=== PATIENT | female | born 1995 | race American Indian/Alaskan Native ===

== ENCOUNTER 2016-04-05 12:31 | Emergency (ER) | payer SELFPAY ==
--- NOTE | 2016-04-05 17:37 | Emergency Department Report ---
HPI - General Chief Complaint: Extremity Injury, Upper Time Seen by Provider: 04/05/16 17:37 - HPI HPI: 21-year-old female presents to ED complaining of thumb pain 1 week. Patient states about a week ago she saw a bump on the side of her thumb. Patient states little ball on the thumb came to a head injury. Patient states it is after that she got her nails done. Patient states now her whole hand is sore and tender to touch. Patient admits pain whole left hand states is throbbing in nature and very painful to touch. Patient denies any injury or fall or hit in her hand. She denies fevers/chills/nausea/vomiting/abdominal pain chest pain or any other problems. ED Past Medical Hx - Past Medical History Previous Medical History?: No - Surgical History Past Surgical History?: No - Social History Smoking Status: Current Every Day Smoker Substance Use Type: None - Medications Home Medications: Home Medications Medication Instructions Recorded Confirmed Last Taken Type Pantoprazole [Protonix] 40 mg PO BID #10 tablet 06/01/15 Unknown Rx Vit-Fe Fumar-FA [ 1 tab PO QDAY #30 tablet 06/01/15 Unknown Rx Vitamin] Promethazine [Phenergan TAB] 25 mg PO Q6HR PRN #20 tab 06/01/15 Unknown Rx Albuterol Sulfate [Ventolin HFA] 2 puff IH Q4H PRN #1 hfa.aer.ad 09/17/15 Unknown Rx Fluticasone [Flonase] 1 spray NS QDAY #1 bottle 09/17/15 Unknown Rx Penicillin Vk [Veetids TAB] 500 mg PO Q8H #30 tablet 09/17/15 Unknown Rx predniSONE [Deltasone] 50 mg PO QDAY #5 tab 09/17/15 Unknown Rx Cephalexin [Keflex] 500 mg PO BID #10 capsule 04/05/16 Unknown Rx Ibuprofen [Motrin 800 MG tab] 800 mg PO Q8HR PRN #30 tablet 04/05/16 Unknown Rx ED Review of Systems ROS: Stated complaint: LFT THUMB PAIN Other details as noted in HPI Constitutional: denies: chills, fever Eyes: denies: eye pain, eye discharge, vision change ENT: denies: ear pain, throat pain Respiratory: denies: cough, shortness of breath, wheezing Cardiovascular: denies: chest pain, palpitations Endocrine: no symptoms reported Gastrointestinal: denies: abdominal pain, nausea, diarrhea Genitourinary: denies: urgency, dysuria, discharge Musculoskeletal: denies: back pain, joint swelling, arthralgia Skin: denies: rash, lesions Neurological: denies: headache, weakness, paresthesias Psychiatric: denies: anxiety, depression Hematological/Lymphatic: denies: easy bleeding, easy bruising Physical Exam - Physical Exam Vital Signs: Vital Signs 04/05/16 14:00 Temperature 98.2 F Pulse Rate 55 L Respiratory 20 Rate Blood Pressure 132/81 O2 Sat by Pulse 100 Oximetry Physical Exam: GENERAL: Alert and oriented x3, no apparent distress, Normal Gait, atraumatic. HEAD: Head is normocephalic and a-traumatic. EYES: Extra ocular muscles are intact. Pupils are equal, round, and reactive to light and accommodation. EARS: symetrical, atraumatic, non tender, ear canal clear, gross auditory nml bilaterally. NOSE: Nose symetrical, Nontender,Nares appeared normal. MOUTH:Mouth is well hydrated and without lesions, Tongue not elevated. Mucous membranes are moist. Posterior pharynx clear, no exudate or lesions. Patent airways. NECK: Supple. Non edematous, No carotid bruits. No lymphadenopathy or thyromegaly. LUNGS: Symetrical with respiration, No wheezing, no rales or crackles, CTAB. HEART: S1, S2 present, regular rate and rhythm without murmur, no rubs, no gallops. ABDOMEN: No organomegaly was noted,Positive bowel sounds, soft, and non- distended. . Nontender to palpation on all Quadrants, NO CVA tenderness. EXTREMITIES/MUSCULOSKELETAL: No cyanosis, clubbing, rash, lesions or edema. Full ROM bilaterally. UE Pulses 2+ bilaterally. Left hand tender to touch. Patient able to extend and flex and with some difficulty. Then nonerythematous. Nonswollen. Mild raised ecchymosis on medial aspect of left thumb. NEUROLOGIC: No focal Deficit, Cranial nerves II through XII are grossly intact. No loss of sensation. PSYCHIATRIC: Mood is congruent with affect, denies suicidal or homicidal ideations. SKIN: Warm and dry, No lesions, No ulceration or induration present. ED Course Vital Signs 04/05/16 14:00 Temperature 98.2 F Pulse Rate 55 L Respiratory 20 Rate Blood Pressure 132/81 O2 Sat by Pulse 100 Oximetry ED Medical Decision Making - Medical Decision Making 21-year-old female presents with a left arm cellulitis. ED course: Discussed patient follow up with primary care physician for further workup and management. Discussed with patient that exam shows no dislocation, no fracture. Discussed patient take medication as prescribed. Discussed with patient if symptoms worsen to return to ED. Patient alert and oriented 3. Patient is in no acute or respiratory distress. Critical care attestation.: If time is entered above; I have spent that time in minutes in the direct care of this critically ill patient, excluding procedure time. ED Disposition Clinical Impression: Arthralgia of left hand, Cellulitis of thumb, left Disposition: DISCHARGED TO HOME OR SELFCARE Is pt being admited?: No Does the pt Need Aspirin: No Condition: Stable Instructions: Cellulitis (ED), Arthralgia (ED) Prescriptions: Cephalexin [Keflex] 500 mg PO BID #10 capsule Ibuprofen [Motrin 800 MG tab] 800 mg PO Q8HR PRN #30 tablet PRN Reason: Sore Throat Referrals: PRIMARY CARE, [Primary Care Provider] - 3-5 Days LUCIANA MANZANO MD [Referring] - 3-5 Days HEATHER EDWARD MD [Referring] - 3-5 Days [facility] [Outside] - 3-5 Days [facility] [Outside] - 3-5 Days [facility] [Outside] - 3-5 Days [facility] [Outside] - 3-5 Days Forms: Work/School Release Form(ED) Time of Disposition: 18:19
[2016-04-05] MEDS ORDERED: TORADOL IM ONE (18:12)
[2016-04-05 18:37] VITALS: BP 130/69
== END 2016-04-05 18:20 | disposition home or self-care (01) ==
LOC: ED 12:31
DX: L03.012 Cellulitis of left finger (principal); M79.642 Pain in left hand; F17.200 Nicotine dependence, unspecified, uncomplicated; Z79.899 Other long term (current) drug therapy; Z79.1 Long term (current) use of non-steroidal anti-inflammatories (NSAID); Z79.2 Long term (current) use of antibiotics; Z91.010 Allergy to peanuts; Z91.013 Allergy to seafood
CPT/HCPCS: 96372; 99282; J1885

== ENCOUNTER 2016-05-15 13:28 | Emergency (ER) | payer SELFPAY ==
[2016-05-15 17:58] LABS: Alanine Aminotransferase 13 units/L (7-56); Albumin/Globulin Ratio 1.2 %; Alkaline Phosphatase 93 units/L (35-129); Anion Gap 18 mmol/L; Bilirubin,Total 0.4 mg/dL (0.1-1.2); Blood Urea Nitrogen 7 mg/dL (7-17); Carbon Dioxide 21 mmol/L (22-30); Chloride 97.9 mmol/L (98-107); Glucose 78 mg/dL (65-100); Potassium 4.2 mmol/L (3.6-5.0); Sodium 133 mmol/L (137-145); Total Protein 7.4 g/dL (6.3-8.2)
[2016-05-15 18:10] LABS: Hematocrit 36.5 % (30.3-42.9); Hemoglobin 11.3 gm/dl (10.1-14.3); Mean Corpuscular HGB Conc 31 % (30-34); Mean Corpuscular Hemoglobin 22 pg (28-32); Mean Corpuscular Volume 71 fl (79-97); Platelet Count 294 K/mm3 (140-440); Red Blood Count 5.15 M/mm3 (3.65-5.03); Red Cell Distribution Width 14.3 % (13.2-15.2); White Blood Count 12.1 K/mm3 (4.5-11.0)
[2016-05-15 19:35] VITALS: BP 121/73
--- NOTE | 2016-05-15 19:54 | Ultrasound Report ---
FINAL REPORT EXAM: US OB TRANSVAGINAL HISTORY: ob complaint COMPARISONS: 06/01/2015 FINDINGS: Transvaginal grayscale and color Doppler ultrasound evaluation of the pelvis Anteverted uterus measures 7.4 x 4.4 x 6.2 cm. Homogeneous endometrium measures 10 millimeters in thickness. No visualized gestational sac or intrauterine . Right ovary measures 2.3 x 1.4 x 1.7 cm. Left ovary measures 3.5 x 1.8 x 4.7 cm. A thick walled cystic structure is present in the left ovary without significant internal or peripheral color Doppler flow demonstrated and measures 1.7 x 1.8 x 1.5 cm. IMPRESSION: No findings of intrauterine . In the setting of a positive test, differential diagnosis includes early normal versus abnormal intrauterine as well as of unknown location including ectopic . Short interval clinical and sonographic follow-up are recommended. Left ovarian 1.8 centimeter cystic structure may be a functional cyst but warrants further evaluation in the setting of a positive test and lack of intrauterine on this examination.
--- NOTE | 2016-05-15 20:13 | Ultrasound Report ---
FINAL REPORT EXAM: US OB \T\lt; = 14 WEEKS FETUS HISTORY: fall with abd injury / pain COMPARISONS: Transvaginal ultrasound of the same date FINDINGS: Transabdominal grayscale pelvic ultrasound Anteverted uterus measures 7.4 x 4.4 x 6.2 cm. Endometrium appears mildly heterogeneous and measures around 15 millimeters in thickness, better demonstrated on transvaginal ultrasound of the same date. no intrauterine identified. No significant free fluid is seen within the pelvis. The ovaries are not visualized with transabdominal technique. IMPRESSION: No intrauterine identified. Short interval clinical and sonographic follow-up is recommended in the setting of a positive test. Please see transvaginal ultrasound of the same date for full details and description.
--- NOTE | 2016-05-15 20:58 | Emergency Department Report ---
Entered by FENG MARY, acting as scribe for GLENROY DOS SANTOS PA. ED Female HPI - General Chief complaint: Extremity Injury, Lower Stated complaint: FALL/RT KNEE INJURY Time Seen by Provider: 05/15/16 17:05 Source: patient Mode of arrival: Ambulatory Limitations: No Limitations - History of Present Illness Initial comments: 21 year old female with no significant PMHx, presents to the ED c/o of right knee pain with associated lower abdominal pain secondary to falling down 2 flights of stairs 3 days ago. She states she tripped and subsequently fell down the stairs. Denies nausea, vomiting, diarrhea, fever/chills, vaginal bleeding, and vaginal discharge. LMP 03/07/2016. , patient states that she found out she was last night. She takes Zyrtec every morning. MD Complaint: other (lower abdominal pain secondary to fall down 2 flights of stairs) Onset/Timin -: days(s) Location: RLQ Radiation: non-radiating Severity: mild Quality: aching Consistency: constant Improves with: none Worsens with: none Are you Now?: Yes (patient found out she was last night. LMP ) Last Menstrual Period: 03/07/16 EDC: 12/12/16 Associated Symptoms: denies other symptoms, vaginal discharge, vaginal bleeding , nausea/vomiting, fever/chills, other (diarrhea). denies: abdominal pain - Related Data : 1 Para: 0 A: 0 Previous Rx's Medication Instructions Recorded Last Taken Type Pantoprazole [Protonix] 40 mg PO BID #10 tablet 06/01/15 Unknown Rx Vit-Fe Fumar-FA [ 1 tab PO QDAY #30 tablet 06/01/15 Unknown Rx Vitamin] Promethazine [Phenergan TAB] 25 mg PO Q6HR PRN #20 tab 06/01/15 Unknown Rx Albuterol Sulfate [Ventolin HFA] 2 puff IH Q4H PRN #1 hfa.aer.ad 09/17/15 Unknown Rx Fluticasone [Flonase] 1 spray NS QDAY #1 bottle 09/17/15 Unknown Rx Penicillin Vk [Veetids TAB] 500 mg PO Q8H #30 tablet 09/17/15 Unknown Rx predniSONE [Deltasone] 50 mg PO QDAY #5 tab 09/17/15 Unknown Rx Cephalexin [Keflex] 500 mg PO BID #10 capsule 04/05/16 Unknown Rx Ibuprofen [Motrin 800 MG tab] 800 mg PO Q8HR PRN #30 tablet 04/05/16 Unknown Rx Allergies Allergy/AdvReac Type Severity Reaction Status Date / Time peanut Allergy Itching Verified 11/18/14 10:50 shellfish derived Allergy Hives Verified 11/18/14 10:50 ED Review of Systems Comment: All other systems reviewed and negative Constitutional: denies: chills, fever Gastrointestinal: abdominal pain (lower). denies: nausea, vomiting, diarrhea Genitourinary: denies: discharge, other (vaginal bleeding) ED Past Medical Hx - Social History Smoking Status: Current Every Day Smoker Substance Use Type: None - Medications Home Medications: Home Medications Medication Instructions Recorded Confirmed Last Taken Type Pantoprazole [Protonix] 40 mg PO BID #10 tablet 06/01/15 Unknown Rx Vit-Fe Fumar-FA [ 1 tab PO QDAY #30 tablet 06/01/15 Unknown Rx Vitamin] Promethazine [Phenergan TAB] 25 mg PO Q6HR PRN #20 tab 06/01/15 Unknown Rx Albuterol Sulfate [Ventolin HFA] 2 puff IH Q4H PRN #1 hfa.aer.ad 09/17/15 Unknown Rx Fluticasone [Flonase] 1 spray NS QDAY #1 bottle 09/17/15 Unknown Rx Penicillin Vk [Veetids TAB] 500 mg PO Q8H #30 tablet 09/17/15 Unknown Rx predniSONE [Deltasone] 50 mg PO QDAY #5 tab 09/17/15 Unknown Rx Cephalexin [Keflex] 500 mg PO BID #10 capsule 04/05/16 Unknown Rx Ibuprofen [Motrin 800 MG tab] 800 mg PO Q8HR PRN #30 tablet 04/05/16 Unknown Rx ED Physical Exam - General Limitations: No Limitations General appearance: alert, in no apparent distress - Head Head exam: Present: atraumatic, normocephalic - Eye Eye exam: Present: normal appearance - ENT ENT exam: Present: mucous membranes moist - Neck Neck exam: Present: normal inspection - Respiratory Respiratory exam: Present: normal lung sounds bilaterally. Absent: respiratory distress - Cardiovascular Cardiovascular Exam: Present: regular rate - GI/Abdominal GI/Abdominal exam: Present: soft, tenderness (mild suprapubic tenderness), normal bowel sounds. Absent: distended, guarding, rebound - Rectal Rectal exam: Present: deferred - External exam: Present: other (have deferred) - Extremities Exam Extremities exam: Present: normal inspection, full ROM. Absent: joint swelling (right next) - Expanded Lower Extremity Exam Right Hip exam: Present: normal inspection, full ROM Upper Leg exam: Present: normal inspection, full ROM Knee exam: Present: normal inspection, full ROM, tenderness (anterior right knee ). Absent: swelling, pain/laxity with valgus, pain/laxity with varus Lower Leg exam: Present: normal inspection, full ROM Ankle exam: Present: normal inspection, full ROM Foot/Toe exam: Present: normal inspection, full ROM Neuro vascular tendon exam: Present: no vascular compromise (Patient is neurovascularly intact distal to the injury). Absent: pulse deficit, motor deficit, sensory deficit, tendon deficit - Back Exam Back exam: Present: normal inspection - Neurological Exam Neurological exam: Present: alert, oriented X3 - Psychiatric Psychiatric exam: Present: normal affect, normal mood - Skin Skin exam: Present: warm, dry, intact ED Course Vital Signs 05/15/16 05/15/16 16:02 19:34 Temperature 98.5 F 98.2 F Pulse Rate 80 85 Respiratory 20 14 Rate Blood Pressure 137/82 Blood Pressure 121/73 [Right] O2 Sat by Pulse 100 Oximetry - Reevaluation(s) Reevaluation #1: 05/15/16 20:42 Resting comfortably, advised patient she needs recheck in 48 hours for another one dictated hCG and repeat sonogram to rule out ectopic . ED Medical Decision Making - Lab Data Result diagrams: 05/15/16 17:23 05/15/16 17:23 - Medical Decision Making Patient sonogram shows no evidence of IUP, beta hCG 444. The patient recheck in 48 hours to rule out ectopic area advised patient return sooner for increased pain weakness, dizziness, or other concerns. ED Disposition Clinical Impression: Abdominal pain in Disposition: DISCHARGED TO HOME OR SELFCARE Is pt being admited?: No Condition: Stable Instructions: (ED) Additional Instructions: Return in 48 hours for recheck Referrals: PRIMARY CARE, [Primary Care Provider] - 3-5 Days TONYA VILLEGAS MD [Staff Physician] - 3-5 Days This documentation as recorded by the scribeUSMAN JASMINE,accurately reflects the service I personally performed and the decisions made by me,GLENROY DOS SANTOS PA.
== END 2016-05-15 21:00 | disposition home or self-care (01) ==
LOC: ED 13:28
DX: O26.891 Other specified pregnancy related conditions, first trimester (principal); R10.30 Lower abdominal pain, unspecified; M25.561 Pain in right knee; O99.331 Smoking (tobacco) complicating pregnancy, first trimester; Z91.010 Allergy to peanuts; Z91.013 Allergy to seafood
CPT/HCPCS: 36415; 76801; 76817; 80053; 84702; 85027

== ENCOUNTER 2016-06-16 12:36 | Emergency (ER) | payer SELFPAY ==
[2016-06-16 13:20] LABS: Basophils % (Auto) 0.2 % (0.0-1.8); Eosinophils % (Auto) 1.4 % (0.0-4.3); Hematocrit 35.3 % (30.3-42.9); Hemoglobin 11.1 gm/dl (10.1-14.3); Mean Corpuscular HGB Conc 31 % (30-34); Mean Corpuscular Volume 72 fl (79-97); Platelet Count 287 K/mm3 (140-440); Red Blood Count 4.89 M/mm3 (3.65-5.03); Red Cell Distribution Width 14.4 % (13.2-15.2); White Blood Count 8.9 K/mm3 (4.5-11.0)
[2016-06-16 13:29] LABS: Mean Corpuscular Hemoglobin 23 pg (28-32)
[2016-06-16 13:45] LABS: Bilirubin,Urine NEG (Negative); Blood,Urine LG (Negative); Ketones,Urine NEG (Negative); Leukocyte Esterase,Urine NEG (Negative); Nitrite,Urine NEG (Negative); Protein,Urine <15 mg/dL mg/dL (Negative); Urobilinogen,Urine < 2.0 mg/dL (<2.0); WBC,Urine < 1.0 /HPF (0.0-6.0)
[2016-06-16] MEDS ORDERED: NORCO 5/325 PO ONE (17:08)
--- NOTE | 2016-06-16 17:13 | Emergency Department Report ---
<ZACH DISLA - Last Filed: 06/16/16 17:09> ED Female HPI - General Chief complaint: Abdominal Pain Stated complaint: ABD PAIN/11 WKS PREG/VAG BLEEDING Time Seen by Provider: 06/16/16 17:04 Source: patient, RN notes reviewed Mode of arrival: Ambulatory Limitations: No Limitations - History of Present Illness Initial comments: 21-year-old female presents to the emergency department complaining of abdominal pain and vaginal bleeding. Patient states for the past 3 days she has been having sharp, intermittent left lower abdominal pain. This pain does not radiate. Patient reports initially having vaginal spotting, but this morning the bleeding became heavier. Patient describes dark blood with small clots. She reportedly is soaking one to 2 pads in a single hour. Patient states she is approximately 11 weeks , . She reports mild nausea, vomiting, and diarrhea. There are no other complaints. MD Complaint: vaginal bleeding -: Gradual, days(s) Location: LLQ Radiation: non-radiating Severity: moderate Severity scale (0 -10): 6 Quality: sharp Consistency: intermittent Improves with: none Worsens with: none Are you Now?: Yes Associated Symptoms: vaginal bleeding, abdominal pain, nausea/vomiting - Related Data : 1 Para: 0 Home Medications Medication Instructions Recorded Confirmed Last Taken Cetirizine HCl [ZyrTEC] 10 mg PO QDAY PRN 06/16/16 06/16/16 Unknown Previous Rx's Medication Instructions Recorded Last Taken Type Doxylamine/Pyridoxine HCl 1 each PO QHS PRN #30 tablet. 06/16/16 Unknown Rx [Taya Richards 10-10 mg Tablet] Vit W-Ca,Fe,FA(<1 mg) 1 each PO QDAY #30 tablet 06/16/16 Unknown Rx [ Vitamins] Allergies Allergy/AdvReac Type Severity Reaction Status Date / Time peanut Allergy Itching Verified 11/18/14 10:50 shellfish derived Allergy Hives Verified 11/18/14 10:50 ED Review of Systems ROS: Stated complaint: ABD PAIN/11 WKS PREG/VAG BLEEDING Other details as noted in HPI Comment: All other systems reviewed and negative Gastrointestinal: abdominal pain, nausea, vomiting, diarrhea Genitourinary: as per HPI (vaginal bleeding) ED Past Medical Hx - Past Medical History Previous Medical History?: No - Surgical History Past Surgical History?: No - Family History Family history: no significant - Social History Smoking Status: Never Smoker Substance Use Type: None - Medications Home Medications: Home Medications Medication Instructions Recorded Confirmed Last Taken Type Cetirizine HCl [ZyrTEC] 10 mg PO QDAY PRN 06/16/16 06/16/16 Unknown History Doxylamine/Pyridoxine HCl 1 each PO QHS PRN #30 tablet. 06/16/16 Unknown Rx [Taya Dr 10-10 mg Tablet] Vit W-Ca,Fe,FA(<1 mg) 1 each PO QDAY #30 tablet 06/16/16 Unknown Rx [ Vitamins] ED Physical Exam - General Limitations: No Limitations General appearance: alert, in no apparent distress - Head Head exam: Present: atraumatic, normocephalic - Eye Eye exam: Present: normal appearance, PERRL, EOMI - ENT ENT exam: Present: normal exam, normal orophraynx, mucous membranes moist - Neck Neck exam: Present: normal inspection, full ROM. Absent: tenderness - Respiratory Respiratory exam: Present: normal lung sounds bilaterally. Absent: respiratory distress - Cardiovascular Cardiovascular Exam: Present: regular rate, normal rhythm, normal heart sounds - GI/Abdominal GI/Abdominal exam: Present: soft, tenderness (mild left lower quadrant tenderness to palpation), guarding (voluntary), normal bowel sounds. Absent: distended, rebound - Extremities Exam Extremities exam: Present: normal inspection, full ROM. Absent: tenderness - Back Exam Back exam: Present: normal inspection, full ROM. Absent: tenderness - Neurological Exam Neurological exam: Present: alert, oriented X3. Absent: motor sensory deficit - Skin Skin exam: Present: warm, dry, intact ED Course Vital Signs 06/16/16 06/16/16 12:43 17:17 Temperature 98.6 F Pulse Rate 100 H Respiratory 16 18 Rate Blood Pressure 154/87 O2 Sat by Pulse 100 Oximetry ED Medical Decision Making - Lab Data Result diagrams: 06/16/16 12:58 - Differential Diagnosis abdominal pain in , threatened miscarriage, ectopic Critical care attestation.: If time is entered above; I have spent that time in minutes in the direct care of this critically ill patient, excluding procedure time. ED Disposition Clinical Impression: Miscarriage Disposition: DISCHARGED TO HOME OR SELFCARE Condition: Stable Instructions: Threatened Miscarriage (ED) Additional Instructions: Take the vitamins as directed. Take nausea medication as needed/ directed. Follow up with any of the listed [facility] groups as soon as possible. Rest and avoid heavy lifting. Do not engage in sexual activity until cleared by an [facility] doctor. Possibilities include early , early possible miscarriage, or demise. Return to the ER right away with new pain, worsened pain, migration of pain, fevers or chills, nausea or vomiting, inability to tolerate liquid feeds. Referrals: PRIMARY CARE, [Primary Care Provider] - 3-5 Days [facility] [Provider Group] - 3-5 Days [facility] [Provider [facility]] - 3-5 Days [facility] [Provider Group] - 3-5 Days <MATHEW JACOBS - Last Filed: 06/16/16 20:13> ED Course - Reevaluation(s) Reevaluation #1: 06/16/16 20:10 The patient is signed out to me from Dr. Disla. Ultrasound demonstrates intrauterine with estimated gestational age 5 weeks and 6 days. No heart tones are noted. Patient is Rh+. Differential diagnosis includes early gestational age versus possibility of demise. The abdomen is soft on repeat examination. The patient is tolerating liquid feeds. The patient will be started on vitamins, nausea medication, instructed to follow up with local outpatient [facility]. Return precautions are reviewed. ED Medical Decision Making - Lab Data Result diagrams: 06/16/16 12:58 Vital Signs 06/16/16 06/16/16 12:43 17:17 Temperature 98.6 F Pulse Rate 100 H Respiratory 16 18 Rate Blood Pressure 154/87 O2 Sat by Pulse 100 Oximetry Lab Results 06/16/16 06/16/16 06/16/16 Range/Units 12:58 12:58 12:58 WBC 8.9 (4.5-11.0) K/mm3 RBC 4.89 (3.65-5.03) M/mm3 Hgb 11.1 (10.1-14.3) gm/dl Hct 35.3 (30.3-42.9) % MCV 72 L (79-97) fl MCH 23 L (28-32) pg MCHC 31 (30-34) % RDW 14.4 (13.2-15.2) % Plt Count 287 (140-440) K/mm3 Lymph % (Auto) 15.8 (13.4-35.0) % [place] % (Auto) 5.5 (0.0-7.3) % Eos % (Auto) 1.4 (0.0-4.3) % Baso % (Auto) 0.2 (0.0-1.8) % Lymph # 1.4 (1.2-5.4) K/mm3 [place] # 0.5 (0.0-0.8) K/mm3 Eos # 0.1 (0.0-0.4) K/mm3 Baso # 0.0 (0.0-0.1) K/mm3 Seg Neutrophils % 77.1 H (40.0-70.0) % Seg Neutrophils # 6.9 (1.8-7.7) K/mm3 HCG, Quant 08622 H (0-4) mIU/mL Urine Color (Yellow) Urine Turbidity (Clear) Urine pH (5.0-7.0) Ur Specific [place] (1.003-1.030) Urine Protein (Negative) mg/dL Urine Glucose (UA) (Negative) mg/dL Urine Ketones (Negative) mg/dL Urine Blood (Negative) Urine Nitrite (Negative) Urine Bilirubin (Negative) Urine Urobilinogen (<2.0) mg/dL Ur Leukocyte Esterase (Negative) Urine WBC (Auto) (0.0-6.0) /HPF Urine RBC (Auto) (0.0-6.0) /HPF U Epithel Cells (Auto) (0-13.0) /HPF Blood Type O POSITIVE Antibody Screen TNR REGGIE Antibody Screen Negative 06/16/16 Range/Units 12:59 WBC (4.5-11.0) K/mm3 RBC (3.65-5.03) M/mm3 Hgb (10.1-14.3) gm/dl Hct (30.3-42.9) % MCV (79-97) fl MCH (28-32) pg MCHC (30-34) % RDW (13.2-15.2) % Plt Count (140-440) K/mm3 Lymph % (Auto) (13.4-35.0) % [place] % (Auto) (0.0-7.3) % Eos % (Auto) (0.0-4.3) % Baso % (Auto) (0.0-1.8) % Lymph # (1.2-5.4) K/mm3 [place] # (0.0-0.8) K/mm3 Eos # (0.0-0.4) K/mm3 Baso # (0.0-0.1) K/mm3 Seg Neutrophils % (40.0-70.0) % Seg Neutrophils # (1.8-7.7) K/mm3 HCG, Quant (0-4) mIU/mL Urine Color Straw (Yellow) Urine Turbidity Clear (Clear) Urine pH 7.0 (5.0-7.0) Ur Specific [place] 1.004 (1.003-1.030) Urine Protein <15 mg/dl (Negative) mg/dL Urine Glucose (UA) Neg (Negative) mg/dL Urine Ketones Neg (Negative) mg/dL Urine Blood Lg (Negative) Urine Nitrite Neg (Negative) Urine Bilirubin Neg (Negative) Urine Urobilinogen < 2.0 (<2.0) mg/dL Ur Leukocyte Esterase Neg (Negative) Urine WBC (Auto) < 1.0 (0.0-6.0) /HPF Urine RBC (Auto) 2.0 (0.0-6.0) /HPF U Epithel Cells (Auto) < 1.0 (0-13.0) /HPF Blood Type Antibody Screen REGGIE Antibody Screen ED Disposition Is pt being admited?: No Does the pt Need Aspirin: No
--- NOTE | 2016-06-16 20:02 | Ultrasound Report ---
FINAL REPORT EXAM: US OB TRANSVAGINAL HISTORY: , vag bleed TECHNIQUE: Endovaginal ultrasound was performed in multiple grayscale sonographic images were obtained of the uterus and adnexa. PRIORS: Transabdominal ultrasound from 06/16/2016 FINDINGS: Gestational sac is identified in the uterus. There is a pole that measures approximately 2.9 millimeters in length. Yolk sac is identified. No heart tones were detected during the exam. Right ovary measures approximately 3.2 x 1.7 x 3.2 centimeters. There is an 11 millimeter cyst in the right ovary. Left ovary measures approximately 2.1 x 1.4 x 1.1 centimeter. Small amount of fluid is seen posterior to the uterus. IMPRESSION: 1. Single intrauterine is identified with estimated gestational age 5 weeks 6 days. No heart tones were detected during the exam. This may be secondary to early gestational age. Possibility of demise is not excluded. Short-term interval follow-up exam is recommended to assure viability. 2. 11 millimeter right ovarian cyst. 3. Small amount of fluid is noted posterior to the uterus. This is a nonspecific finding. It may be physiologic. 4. Please refer to report from transabdominal pelvic ultrasound from 06/16/2016 for additional information.
--- NOTE | 2016-06-16 20:02 | Ultrasound Report ---
FINAL REPORT EXAM: US OB \T\lt; = 14 WEEKS FETUS HISTORY: , vag bleed TECHNIQUE: Transabdominal pelvic ultrasound was performed. Multiple grayscale sonographic images were obtained of the uterus and adnexa. PRIORS: Endovaginal ultrasound from 06/16/2016 FINDINGS: Uterus measures approximately 7.5 x 5.1 x 6.2 centimeters. There is a hypoechoic structure in the uterus that measures approximately 2 centimeters in diameter. Ovaries are not identified with certainty. IMPRESSION: 1. Hypoechoic structure is seen in the uterus. This is consistent with gestational sac. Please refer to report from endovaginal ultrasound from 06/16/2016 for additional information. 2. Nonvisualization of the ovaries.
[2016-06-16 20:23] VITALS: BP 133/68
== END 2016-06-16 20:45 | disposition home or self-care (01) ==
LOC: ED 12:36
DX: O03.9 Complete or unspecified spontaneous abortion without complication (principal); Z3A.00 Weeks of gestation of pregnancy not specified
CPT/HCPCS: 36415; 76801; 76817; 81001; 84702; 85025; 86850; 86900; 86901; 99284

== ENCOUNTER 2017-08-21 19:16 | Emergency (ER) | payer SELFPAY ==
[2017-08-21 19:50] LABS: Hematocrit 35.5 % (30.3-42.9); Hemoglobin 11.4 gm/dl (10.1-14.3); Mean Corpuscular HGB Conc 32 % (30-34); Mean Corpuscular Volume 74 fl (79-97); Red Blood Count 4.82 M/mm3 (3.65-5.03); Red Cell Distribution Width 14.4 % (13.2-15.2)
[2017-08-21 19:56] LABS: Mean Corpuscular Hemoglobin 24 pg (28-32); Platelet Count 223 K/mm3 (140-440)
[2017-08-21 20:03] LABS: Alanine Aminotransferase 11 units/L (7-56); Albumin 3.7 g/dL (3.9-5); BUN/Creatinine Ratio 10; Blood Urea Nitrogen 6 mg/dL (7-17); Calcium 9.2 mg/dL (8.4-10.2); Hemolysis Index 88
[2017-08-21] MEDS ORDERED: MORPHINE IV ONE (20:28)
[2017-08-21] MEDS ORDERED: ZOFRAN IV ONE (20:28)
[2017-08-21] MEDS ORDERED: NACL 0.9% 1000 ML 1,000 ML IV ONE (20:28)
--- NOTE | 2017-08-21 20:34 | Emergency Department Report ---
ED Abdominal Pain HPI - General Chief Complaint: Abdominal Pain Stated Complaint: ASTHMA Time Seen by Provider: 08/21/17 20:21 Source: patient Mode of arrival: Ambulatory Limitations: No Limitations - History of Present Illness Initial Comments: Ms. Mederos is who is currently 8 weeks 3 days by LMP 06/24/2017. She presents with severe abdominal pain diffuse for 3 days. Bilateral generalized pain. Sharp pain. Tender to touch. +constipation +vomiting. Gradual onset. MD Complaint: abdominal pain -: Gradual, days(s) (3) Location: diffuse Radiation: none Migration to: no migration Severity: severe Quality: sharp Consistency: constant Improves With: nothing, bowel movement Worsens With: movement Context: other (new ) Associated Symptoms: nausea, vomiting, constipation - Related Data Home Medications Medication Instructions Recorded Confirmed Last Taken Cetirizine HCl [ZyrTEC] 10 mg PO QDAY PRN 06/16/16 06/16/16 Unknown Previous Rx's Medication Instructions Recorded Last Taken Type Doxylamine Succinate/Vit B6 1 each PO QHS PRN #30 tablet. 06/16/16 Unknown Rx [Taya Richards 10-10 mg Tablet] Vit Calc,Iron,Folic 1 each PO QDAY #30 tablet 06/16/16 Unknown Rx [ Vitamins] Promethazine [Phenergan TAB] 25 mg PO Q6HR PRN #30 tab 08/21/17 Unknown Rx Allergies Allergy/AdvReac Type Severity Reaction Status Date / Time peanut Allergy Itching Verified 11/18/14 10:50 shellfish derived Allergy Hives Verified 11/18/14 10:50 ED Review of Systems ROS: Stated complaint: ASTHMA Other details as noted in HPI Comment: All other systems reviewed and negative Constitutional: denies: fever, malaise Respiratory: denies: cough Cardiovascular: denies: chest pain ED Past Medical Hx - Past Medical History Previous Medical History?: No Additional medical history: no hx of STD - Surgical History Past Surgical History?: No - Social History Smoking Status: Never Smoker Substance Use Type: None - Medications Home Medications: Home Medications Medication Instructions Recorded Confirmed Last Taken Type Cetirizine HCl [ZyrTEC] 10 mg PO QDAY PRN 06/16/16 06/16/16 Unknown History Doxylamine Succinate/Vit B6 1 each PO QHS PRN #30 tablet. 06/16/16 Unknown Rx [Taya Richards 10-10 mg Tablet] Vit Calc,Iron,Folic 1 each PO QDAY #30 tablet 06/16/16 Unknown Rx [ Vitamins] Promethazine [Phenergan TAB] 25 mg PO Q6HR PRN #30 tab 08/21/17 Unknown Rx ED Physical Exam - General Limitations: No Limitations General appearance: alert, other (pacing room, rubbing abdomen, appears in pain) - Head Head exam: Present: atraumatic, normocephalic - Eye Eye exam: Present: normal appearance - ENT ENT exam: Present: mucous membranes moist - Neck Neck exam: Present: normal inspection. Absent: tenderness, meningismus - Respiratory Respiratory exam: Present: normal lung sounds bilaterally. Absent: respiratory distress, wheezes, rales, rhonchi - Cardiovascular Cardiovascular Exam: Present: regular rate, normal rhythm, normal heart sounds. Absent: systolic murmur, diastolic murmur, rubs, gallop - GI/Abdominal GI/Abdominal exam: Present: soft, guarding, normal bowel sounds. Absent: distended, tenderness, rebound - Extremities Exam Extremities exam: Present: normal inspection - Back Exam Back exam: Present: normal inspection - Neurological Exam Neurological exam: Present: alert, oriented X3, normal gait - Psychiatric Psychiatric exam: Present: normal affect, normal mood - Skin Skin exam: Present: warm, dry, intact, normal color. Absent: rash ED Course Vital Signs 08/21/17 08/21/17 08/21/17 19:23 20:30 20:46 Temperature 98.2 F Pulse Rate 86 Respiratory 22 Rate Blood Pressure 118/85 121/63 O2 Sat by Pulse 99 99 98 Oximetry 08/21/17 08/21/17 08/21/17 21:00 22:11 22:19 Temperature Pulse Rate Respiratory 18 Rate Blood Pressure 121/63 112/53 O2 Sat by Pulse 100 100 99 Oximetry ED Medical Decision Making - Lab Data Result diagrams: 08/21/17 19:38 08/21/17 19:38 Laboratory Results - last 24 hr 08/21/17 08/21/17 08/21/17 19:38 19:38 19:38 WBC 11.0 RBC 4.82 Hgb 11.4 Hct 35.5 MCV 74 L MCH 24 L MCHC 32 RDW 14.4 Plt Count 223 Add Manual Diff Complete Total Counted 100 Seg Neuts % (Manual) 64.0 Band Neutrophils % 0 Lymphocytes % (Manual) 30.0 Reactive Lymphs % (Man) 0 Monocytes % (Manual) 6.0 Eosinophils % (Manual) 0 Basophils % (Manual) 0 Metamyelocytes % 0 Myelocytes % 0 Promyelocytes % 0 Blast Cells % 0 Nucleated RBC % Not Reportable Seg Neutrophils # Man 7.0 Band Neutrophils # 0.0 Lymphocytes # (Manual) 3.3 Abs React Lymphs (Man) 0.0 Monocytes # (Manual) 0.7 Eosinophils # (Manual) 0.0 Basophils # (Manual) 0.0 Metamyelocytes # 0.0 Myelocytes # 0.0 Promyelocytes # 0.0 Blast Cells # 0.0 WBC Morphology Not Reportable Hypersegmented Neuts Not Reportable Hyposegmented Neuts Not Reportable Hypogranular Neuts Not Reportable Smudge Cells Not Reportable Toxic Granulation Not Reportable Toxic Vacuolation Not Reportable Dohle Bodies Not Reportable Pelger-Huet Anomaly Not Reportable Justyn Rods Not Reportable Platelet Estimate Consistent w auto Clumped Platelets Not Reportable Plt Clumps, EDTA Not Reportable Large Platelets Not Reportable Giant Platelets Not Reportable Platelet Satelliting Not Reportable Plt Morphology Comment Not Reportable RBC Morphology Not Reportable Dimorphic RBCs Not Reportable Polychromasia Not Reportable Hypochromasia Not Reportable Poikilocytosis Not Reportable Anisocytosis Not Reportable Microcytosis Not Reportable Macrocytosis Not Reportable Spherocytes Not Reportable Pappenheimer Bodies Not Reportable Sickle Cells Not Reportable Target Cells Rare Tear Drop Cells Not Reportable Ovalocytes Not Reportable Helmet Cells Not Reportable [place]úñ[place] Bodies Not Reportable [place] Rings Not Reportable [place] Cells Not Reportable Bite Cells Not Reportable Crenated Cell Not Reportable Elliptocytes Rare Acanthocytes (Spur) Not Reportable Rouleaux Not Reportable Hemoglobin C Crystals Not Reportable Schistocytes Not Reportable Malaria parasites Not Reportable Diaz Bodies Not Reportable Hem Pathologist Commnt No Sodium 134 L Potassium 3.7 Chloride 100.5 Carbon Dioxide 15 L Anion Gap 22 BUN 6 L Creatinine 0.6 L Estimated GFR > 60 BUN/Creatinine Ratio 10 Glucose 102 H Calcium 9.2 Total Bilirubin 0.50 AST 24 ALT 11 Alkaline Phosphatase 80 Total Protein 7.1 Albumin 3.7 L Albumin/Globulin Ratio 1.1 HCG, Qual Positive Urine Color Urine Turbidity Urine pH Ur Specific Gage Urine Protein Urine Glucose (UA) Urine Ketones Urine Blood Urine Nitrite Urine Bilirubin Urine Urobilinogen Ur Leukocyte Esterase Urine WBC (Auto) Urine RBC (Auto) U Epithel Cells (Auto) Urine Mucus Urine HCG, Qual Blood Type 08/21/17 08/21/17 20:38 20:43 WBC RBC Hgb Hct MCV MCH MCHC RDW Plt Count Add Manual Diff Total Counted Seg Neuts % (Manual) Band Neutrophils % Lymphocytes % (Manual) Reactive Lymphs % (Man) Monocytes % (Manual) Eosinophils % (Manual) Basophils % (Manual) Metamyelocytes % Myelocytes % Promyelocytes % Blast Cells % Nucleated RBC % Seg Neutrophils # Man Band Neutrophils # Lymphocytes # (Manual) Abs React Lymphs (Man) Monocytes # (Manual) Eosinophils # (Manual) Basophils # (Manual) Metamyelocytes # Myelocytes # Promyelocytes # Blast Cells # WBC Morphology Hypersegmented Neuts Hyposegmented Neuts Hypogranular Neuts Smudge Cells Toxic Granulation Toxic Vacuolation Dohle Bodies Pelger-Huet Anomaly Justyn Rods Platelet Estimate Clumped Platelets Plt Clumps, EDTA Large Platelets Giant Platelets Platelet Satelliting Plt Morphology Comment RBC Morphology Dimorphic RBCs Polychromasia Hypochromasia Poikilocytosis Anisocytosis Microcytosis Macrocytosis Spherocytes Pappenheimer Bodies Sickle Cells Target Cells Tear Drop Cells Ovalocytes Helmet Cells Núñez-[place]vid Bodies [place] Rings Cyril Cells Bite Cells Crenated Cell Elliptocytes Acanthocytes (Spur) Rouleaux Hemoglobin C Crystals Schistocytes Malaria parasites Diaz Bodies Hem Pathologist Commnt Sodium Potassium Chloride Carbon Dioxide Anion Gap BUN Creatinine Estimated GFR BUN/Creatinine Ratio Glucose Calcium Total Bilirubin AST ALT Alkaline Phosphatase Total Protein Albumin Albumin/Globulin Ratio HCG, Qual Urine Color Yellow Urine Turbidity Clear Urine pH 6.0 Ur Specific Gage 1.027 Urine Protein 100 mg/dl Urine Glucose (UA) Neg Urine Ketones 80 Urine Blood Neg Urine Nitrite Neg Urine Bilirubin Neg Urine Urobilinogen < 2.0 Ur Leukocyte Esterase Tr Urine WBC (Auto) 5.0 Urine RBC (Auto) 3.0 U Epithel Cells (Auto) 15.0 H Urine Mucus 3+ Urine HCG, Qual Positive A Blood Type O POSITIVE - Radiology Data Radiology results: report reviewed IUP - Medical Decision Making Raquel is pleasant 22 yo female who presents with severe diffuse abdominal pain. Ectopic essentially ruled out with the evidence of IUP intrauterine on ultrasound. No indication of peritonitis. On reexamination she is resting comfortably pain free actually lying on her stomach. On repeat examination there is no abdominal tenderness. Pain is possibly due to early threatened miscarriage. She understands to return if pain returns or any new symptoms. rx: promethazine. Critical care attestation.: If time is entered above; I have spent that time in minutes in the direct care of this critically ill patient, excluding procedure time. ED Disposition Clinical Impression: Threatened miscarriage Disposition: DC-01 TO HOME OR SELFCARE Is pt being admited?: No Does the pt Need Aspirin: No Condition: Stable Instructions: Abdominal Pain in (ED) Prescriptions: Promethazine [Phenergan TAB] 25 mg PO Q6HR PRN #30 tab PRN Reason: Nausea Referrals: CANDICE GILLESPIE MD [Staff Physician] - 3-5 Days Time of Disposition: 23:37
[2017-08-21 21:07] LABS: Basophils % (Manual) 0 % (0.0-1.8); Eosinophils % (Manual) 0 % (0.0-4.3); Total Cells Counted 100
[2017-08-21 21:09] LABS: Platelet Estimate Consistent w Auto; Target Cells Rare
[2017-08-21 21:20] LABS: Bilirubin,Urine NEG (Negative); Blood,Urine NEG (Negative); Color,Urine Yellow (Yellow); Mucus,Urine 3+ /HPF; Urobilinogen,Urine < 2.0 mg/dL (<2.0)
[2017-08-21 21:25] LABS: HCG Qualitative,Urine Positive (Negative)
--- NOTE | 2017-08-21 22:40 | Ultrasound Report ---
FINAL REPORT PROCEDURE: US OB TRANSVAGINAL TECHNIQUE: Real-time transvaginal sonography of the uterus, placenta, amniotic fluid, adnexa, and fetus was performed with image documentation. Measurements were obtained to determine age/size. M-mode Doppler was used to document heartbeat. CPT 71305 HISTORY: abdominal pain COMPARISON: Prior ultrasound 06/16/2016 FINDINGS: There is a single living intrauterine gestation with heart rate of 147 beats per minute. Shape of the gestational sac appears normal. Yolk sac is visualized. Mcpherson-rump length measurement 13.8 millimeters corresponding to an age is 7 weeks 5 days. Fetus currently too small to assess anatomy. No gross abnormality is visualized. Subtle hypoechoic nodular density is seen in the uterine myometrium measuring 1.5 centimeters suggesting a small uterine fibroid. Uterus otherwise is unremarkable. No free fluid is seen in the cul-de-sac. Left ovary is unremarkable measuring 3.1 x 1.7 x 1.8 centimeter. Right ovary measures 3.2 x 2.2 x 3.1 centimeter. Hypoechoic nodule with internal echoes seen in the right ovary measuring 2 centimeters. This may represent hemorrhagic corpus luteum cyst of . IMPRESSION: There is a single living intrauterine gestation visualized. By crown-rump length measurement the estimated age is 7 weeks 5 days. This places the EDC at 04/04/2018 +/-0.5 weeks. Fetus currently too small to assess anatomy. Consider follow-up anatomic screen at 18-20 weeks. Small mural uterine fibroid suspected as described. Small hypoechoic nodule right ovary may represent corpus luteum cyst of . No other abnormalities are seen.
--- NOTE | 2017-08-21 22:42 | Ultrasound Report ---
FINAL REPORT PROCEDURE: US OB < = 14 WEEKS FETUS TECHNIQUE: Real-time transabdominal sonography of the uterus, placenta, amniotic fluid, adnexa, and fetus was performed with image documentation. Measurements were obtained to determine age/size. M-mode Doppler was used to document heartbeat. CPT 49255 HISTORY: abdominal pain COMPARISON: No prior studies are available for comparison. FINDINGS: Single living intrauterine gestation is visualized with a heart rate of 148 beats per minute. No evidence of subchorionic hemorrhage. Shape of the gestational sac appears normal. Small mural hypoechoic nodules seen in the uterine myometrium measuring approximately 14 millimeters suggesting mural fibroid. Uterus otherwise is unremarkable. Right ovary is suboptimally visualized. Left ovary is not visualized. IMPRESSION: Single living intrauterine gestation visualized. Amount of amniotic fluid appears normal. No evidence of subchorionic hemorrhage. Mural fibroid suspected in the uterine myometrium. Transvaginal OB ultrasound is to follow.
[2017-08-22 00:28] VITALS: BP 115/52
== END 2017-08-22 00:29 | disposition home or self-care (01) ==
LOC: ED 19:16
DX: O20.0 Threatened abortion (principal); Z3A.01 Less than 8 weeks gestation of pregnancy; Z91.013 Allergy to seafood; Z91.010 Allergy to peanuts
CPT/HCPCS: 36415; 76801; 76817; 80053; 81001; 81025; 84703; 85007; 85025; 86900; 86901; 96374; 96375; 99284; J2270; J2405; J7030

== ENCOUNTER 2017-08-30 21:30 | Emergency (ER) | payer MEDICAID, OTHER ==
[2017-08-30 22:07] VITALS: BP 126/74
[2017-08-30 23:10] LABS: Bilirubin,Urine NEG (Negative); Blood,Urine NEG (Negative); Color,Urine Yellow (Yellow); Mucus,Urine FEW /HPF; Protein,Urine <15 mg/dL mg/dL (Negative); Urobilinogen,Urine < 2.0 mg/dL (<2.0)
[2017-08-30 23:15] LABS: Basophils % (Auto) 0.3 % (0.0-1.8); Eosinophils % (Auto) 0.5 % (0.0-4.3); Hematocrit 32.9 % (30.3-42.9); Hemoglobin 11.1 gm/dl (10.1-14.3); Lymphocytes # (Auto) 2.9 K/mm3 (1.2-5.4); Lymphocytes % (Auto) 27.9 % (13.4-35.0); Mean Corpuscular HGB Conc 34 % (30-34); Mean Corpuscular Hemoglobin 24 pg (28-32); Mean Corpuscular Volume 72 fl (79-97); Monocytes # (Auto) 0.6 K/mm3 (0.0-0.8); Monocytes % (Auto) 6.2 % (0.0-7.3); Platelet Count 308 K/mm3 (140-440); Red Blood Count 4.58 M/mm3 (3.65-5.03); Red Cell Distribution Width 14.4 % (13.2-15.2)
[2017-08-30 23:30] LABS: Alanine Aminotransferase 13 units/L (7-56); Albumin 4.4 g/dL (3.9-5); BUN/Creatinine Ratio 14; Blood Urea Nitrogen 7 mg/dL (7-17); Calcium 9.6 mg/dL (8.4-10.2); Hemolysis Index 0
--- NOTE | 2017-08-31 00:25 | Ultrasound Report ---
FINAL REPORT PROCEDURE: US OB TRANSVAGINAL and transabdominal TECHNIQUE: Real-time transabdominal and transvaginal sonography of the uterus, placenta, amniotic fluid, adnexa, and fetus was performed with image documentation. Measurements were obtained to determine age/size. M-mode Doppler was used to document heartbeat. CPT 80594 and 91709 HISTORY: 8 weeks with vaginal bleeding and abd ernesto COMPARISON: No prior studies are available for comparison. FINDINGS: ADDITIONAL GESTATION: None. CRL: 22 mm, which corresponds to a gestational age of: 8 weeks, 6 days. Yolk Sac: Normal. Embryonic Cardiac Activity: 166 beats per minute Gestational Sac: Small chorionic bleed is identified on this study. The largest in the mid gestational sac region measures up 23 millimeters. Amniotic fluid: Normal. Cervix: Normal. Right Ovary: Small mass on the right ovary measures 2.5 centimeters. Left Ovary: Normal. Estimated delivery date: 04/05/2018 Uterus and adnexa: Normal. IMPRESSION: 1. Single live intrauterine gestation at approximately 8 weeks, 6 days. 2. EDC by US 04/05/2018 3. Complete anatomic survey at 18-20 weeks suggested.
--- NOTE | 2017-08-31 00:26 | Ultrasound Report ---
FINAL REPORT PROCEDURE: US OB TRANSVAGINAL and transabdominal TECHNIQUE: Real-time transabdominal and transvaginal sonography of the uterus, placenta, amniotic fluid, adnexa, and fetus was performed with image documentation. Measurements were obtained to determine age/size. M-mode Doppler was used to document heartbeat. CPT 56375 and 73019 HISTORY: 8 weeks with vaginal bleeding and abd ernesto COMPARISON: No prior studies are available for comparison. FINDINGS: ADDITIONAL GESTATION: None. CRL: 22 mm, which corresponds to a gestational age of: 8 weeks, 6 days. Yolk Sac: Normal. Embryonic Cardiac Activity: 166 beats per minute Gestational Sac: Small chorionic bleed is identified on this study. The largest in the mid gestational sac region measures up 23 millimeters. Amniotic fluid: Normal. Cervix: Normal. Right Ovary: Small mass on the right ovary measures 2.5 centimeters. Left Ovary: Normal. Estimated delivery date: 04/05/2018 Uterus and adnexa: Normal. IMPRESSION: 1. Single live intrauterine gestation at approximately 8 weeks, 6 days. 2. EDC by US 04/05/2018 3. Complete anatomic survey at 18-20 weeks suggested.
== END 2017-08-31 03:42 | disposition left against medical advice (07) ==
LOC: ED 21:30
DX: R11.2 Nausea with vomiting, unspecified (principal); R10.9 Unspecified abdominal pain; Z53.21 Procedure and treatment not carried out due to patient leaving prior to being seen by health care provider
CPT/HCPCS: 36415; 76801; 76817; 80053; 81001; 84702; 85025; 86850; 86900; 86901

== ENCOUNTER 2018-03-01 08:29 | Outpatient (CLI) | payer MEDICAID ==
[2018-03-01] MEDS ORDERED: LACTATED RINGERS 500 ML IV ONE (09:00)
[2018-03-01] MEDS ORDERED: ZOFRAN IM ONE (09:00)
[2018-03-01] MEDS ORDERED: BRETHINE SUB-Q ONE (09:06)
[2018-03-01 09:30] VITALS: BP 109/55
[2018-03-01 09:38] LABS: Bilirubin,Urine NEG (Negative); Blood,Urine NEG (Negative); Color,Urine Yellow (Yellow); Mucus,Urine FEW /HPF; Protein,Urine <15 mg/dL mg/dL (Negative); Urobilinogen,Urine < 2.0 mg/dL (<2.0)
== END 2018-03-01 09:58 | disposition home or self-care (01) ==
LOC: TRG 08:29
PROVIDERS: ATTEND Obstetrics & Gynecology
DX: O47.03 False labor before 37 completed weeks of gestation, third trimester (principal); Z3A.35 35 weeks gestation of pregnancy; Z91.013 Allergy to seafood; Z91.010 Allergy to peanuts
CPT/HCPCS: 81001; J2405; J3105; J7120

== ENCOUNTER 2018-03-20 12:47 | Outpatient (CLI) | payer MEDICAID ==
[2018-03-20] MEDS ORDERED: LACTATED RINGERS 1,000 ML ONE (14:52)
[2018-03-20 15:16] VITALS: BP 135/66
[2018-03-20] MEDS ORDERED: LACTATED RINGERS 500 ML IV ONE (15:29)
--- NOTE | 2018-03-20 20:21 | Ultrasound Report ---
FINAL REPORT PROCEDURE: US OB BPP WO NON-STRESS TECHNIQUE: Real-time transabdominal sonography in multiple planes of pelvis for a focused or limited evaluation was performed with image documentation. CPT 52666 HISTORY: non-reactive NST COMPARISON: No prior studies are available for comparison. FINDINGS: biophysical profile: breathing movements: 0. movements: 2. posterior and tone: 2. Qualitative amniotic fluid volume: 2. Total score: 6/8. heart rate: 121 beats per minute. IMPRESSION: biophysical profile: 6/8.
--- NOTE | 2018-03-21 08:03 | Ultrasound Report ---
FINAL REPORT PROCEDURE: US OB FOLLOW UP TECHNIQUE: Real-time sonography performed for focused follow-up or re-evaluation of each size/ growth parameters and amniotic fluid or re-evaluation of suspected or confirmed abnormality on prior imaging. CPT 28162 HISTORY: non-reactive NST COMPARISON: Heart 01/10/2018 FINDINGS: IUP: Single living intrauterine . Position: Cephalic. Placental position: , without previa . Amniotic fluid volume: Normal. Heart in the attic fluid index is 13.4 centimeters. Heart rate and rhythm: 117 BPM, Regular . anatomic survey: Not performed. MEASUREMENTS BPD: 8.4 centimeters correspond at 33 weeks and 6 days. HC: 32.1 centimeters correspond at 36 weeks and 2 days. AC: 32.4 centimeters correspond at 36 weeks and 2 days. FL: 7.4 centimeters correspond at 37 weeks 6 days. Mean Gestational Age (composite criteria): 36 weeks and 1 day. Ratio biometry: Normal . Estimated Weight: 2928 grams. Interval growth: Appropriate . Estimated Due Date (earliest scan): 04/16/2018. IMPRESSION: 1. Single living intrauterine gestation at approximately 36 weeks and 1 day 2. EDC by US 04/16/2018.
== END 2018-03-20 18:00 | disposition home or self-care (01) ==
LOC: TRG 12:47
PROVIDERS: ATTEND Obstetrics & Gynecology
DX: O47.03 False labor before 37 completed weeks of gestation, third trimester (principal); Z3A.36 36 weeks gestation of pregnancy
CPT/HCPCS: 59025; 76816; 76819; J7120; 96360; 96361

== ENCOUNTER 2018-03-20 20:24 | Outpatient (CLI) | payer MEDICAID ==
[2018-03-20 23:14] LABS: Hematocrit 30.5 % (30.3-42.9); Hemoglobin 9.9 gm/dl (10.1-14.3); Mean Corpuscular HGB Conc 33 % (30-34); Mean Corpuscular Volume 73 fl (79-97); Platelet Count 250 K/mm3 (140-440); Red Blood Count 4.18 M/mm3 (3.65-5.03); Red Cell Distribution Width 14.1 % (13.2-15.2)
[2018-03-20 23:57] LABS: Anisocytosis 1+; Band Neutrophils # (Manual) 0.1 K/mm3; Basophils % (Manual) 0 % (0.0-1.8); Hypochromasia 1+; Ovalocytes 2+; Poikilocytosis 1+; Tear Drop Cells Few; Total Cells Counted 100
[2018-03-21] MEDS ORDERED: TYLENOL PO PRN (00:28)
[2018-03-21] MEDS: ZOFRAN IV PRN ×2 (00:59→16:57)
[2018-03-21] MEDS ORDERED: LACTATED RINGERS 1,000 ML ONE (12:20)
[2018-03-21] MEDS ORDERED: LACTATED RINGERS 1,000 ML IV ONE (12:25)
[2018-03-21 13:04] VITALS: BP 109/55
--- NOTE | 2018-03-21 14:49 | Ultrasound Report ---
ULTRASOUND BIOPHYSICAL PROFILE: History: well being Technique: Transabdominal ultrasound with Doppler interrogation. 2 - breathing movements 2 - movements 2 - posture and tone 2 - Qualitative amniotic fluid volume 8 - TOTAL SCORE OF POSSIBLE 8 Heart Rate (bpm) 120
--- NOTE | 2018-03-21 18:10 | Event Note ---
Date: 03/21/18 22 yo at 37.6 weeks presented to labor and delivery on 03/20 for BPP and NST. The original BPP was reported as 8/8 and then later in the evening, the radiology dept called back and stated that the BPP was 6/8. She was kept overnight for observation. The repeat BPP was 8/8 today now her NST is reactive. She complains of nausea and has vomited. She has had this problem throughout the . She was instructed to call the office in the am for a follow up appt. Will discharge home.
== END 2018-03-21 18:27 | disposition home or self-care (01) ==
LOC: TRG 20:24 → LD 20:25 → TRG 03-21 18:27
PROVIDERS: ATTEND Obstetrics & Gynecology
DX: O47.1 False labor at or after 37 completed weeks of gestation (principal); Z3A.38 38 weeks gestation of pregnancy
CPT/HCPCS: 36415; 76819; 85007; 85025; 86850; 86900; 86901; J2405; J7120

== ENCOUNTER 2018-03-28 11:36 | Inpatient (IN) | payer MEDICAID ==
[2018-03-28 15:10] LABS: Basophils % (Auto) 0.2 % (0.0-1.8); Eosinophils # (Auto) 0.1 K/mm3 (0.0-0.4); Eosinophils % (Auto) 0.5 % (0.0-4.3); Hematocrit 33.9 % (30.3-42.9); Hemoglobin 10.7 gm/dl (10.1-14.3); Lymphocytes # (Auto) 2.1 K/mm3 (1.2-5.4); Lymphocytes % (Auto) 20.9 % (13.4-35.0); Mean Corpuscular HGB Conc 32 % (30-34); Mean Corpuscular Volume 73 fl (79-97); Monocytes # (Auto) 0.6 K/mm3 (0.0-0.8); Platelet Count 245 K/mm3 (140-440); Red Blood Count 4.66 M/mm3 (3.65-5.03); Red Cell Distribution Width 14.6 % (13.2-15.2)
[2018-03-28] MEDS ORDERED: CERVIDIL VG ONE (17:31)
[2018-03-28] MEDS: LACTATED RINGERS 1,000 ML IV SCH (18:16)
[2018-03-28] MEDS ORDERED: ZOFRAN IV ONE (18:22)
--- NOTE | 2018-03-28 20:39 | Ultrasound Report ---
FINAL REPORT PROCEDURE: US OB LIMITED TECHNIQUE: Real-time limited sonographic examination was performed for evaluation of amniotic fluid index for each fetus with image documentation (1 or more fetuses). CPT 63451 HISTORY: WELL BEING; EDNA COMPARISON: No prior studies are available for comparison. FINDINGS: A single intrauterine gestation is identified with cephalic presentation. heart rate is 122 leona ts per minute. Amniotic fluid index is 16.9 centimeters. IMPRESSION: Normal amniotic fluid index.
--- NOTE | 2018-03-28 20:39 | Ultrasound Report ---
FINAL REPORT PROCEDURE: US OB BPP WO NON-STRESS TECHNIQUE: Sonographic evaluation for breathing, movement, tone, and amniotic flui d volume was performed. CPT 21129 HISTORY: WELL BEING; EDNA COMPARISON: No prior studies are available for comparison. FINDINGS: Amniotic fluid volume: Normal-score 2. At least one vertical pocket > 2 cm or more in vertical axi s. breathing: Normal-score 2. movement: Normal-score 2. tone: Normal. Score: 8 of 8. IMPRESSION: Normal biophysical profile.
[2018-03-28] MEDS ORDERED: ZOFRAN ONE (21:58)
[2018-03-29] MEDS: LACTATED RINGERS 1,000 ML IV SCH ×3 (00:36→21:15)
--- NOTE | 2018-03-29 10:18 | History and Physical Report ---
<ROSA MARIO S - Last Filed: 03/29/18 10:14> History of Present Illness Date of examination: 03/29/18 Date of admission: 03/28/18 11:37 Chief complaint: Sent from office for IOL History of present illness: 22 yo AAF, , RODRIGUE 04/04 by LMP @ 39.1 wks. Sent from office for decrease FM. BPP 07/20 with NRNST and hx of obesity. Decision was made for IOL. Past History - Obstetrical History : 1 Medications and Allergies Allergies Allergy/AdvReac Type Severity Reaction Status Date / Time peanut Allergy Itching Verified 03/01/18 08:39 shellfish derived Allergy Hives Verified 03/01/18 08:39 Home Medications Medication Instructions Recorded Confirmed Last Taken Type Cetirizine HCl [ZyrTEC] 10 mg PO QDAY PRN 06/16/16 12/09/17 5 Days Ago History ~12/04/17 Vit Calc,Iron,Folic 1 each PO QDAY #30 tablet 06/16/16 12/09/17 12/08/17 23:30 Rx [ Vitamins] Promethazine [Phenergan TAB] 25 mg PO Q6HR PRN #30 tab 08/21/17 12/09/17 12/08/17 23:00 Rx Ferrous Sulfate [Iron] 325 mg PO QDAY 12/09/17 12/09/17 12/08/17 10:30 History Active Meds: Active Medications Butorphanol Tartrate (Stadol) 2 mg IV Q2H PRN PRN Reason: Labor Pain Lactated Ringer's (Lactated Ringers) 1,000 mls @ 125 mls/hr IV DIRECT IRAJ Last Admin: 03/29/18 09:17 Dose: 125 mls/hr Documented by: - Vital Signs Vital signs: Vital Signs Temp Pulse Resp BP 97.4 F L 93 H 20 124/72 03/28/18 11:52 03/28/18 11:52 03/28/18 11:52 03/28/18 11:52 Temp Pulse Resp BP Pulse Ox 98.1 F 80 20 119/62 98 03/29/18 09:21 03/29/18 10:10 03/29/18 09:21 03/29/18 10:10 03/29/18 09:32 Results Result Diagrams: 03/28/18 14:52 Abnormal lab results 03/28/18 Range/Units 14:52 MCV 73 L (79-97) fl MCH 23 L (28-32) pg Seg Neutrophils % 72.4 H (40.0-70.0) % All other labs normal. <RICA - Last Filed: 03/29/18 11:09> History of Present Illness Date of admission: 03/28/18 11:37 History of present illness: Initiated care with [facility] [employer] [facility] at 11 weeks. complicated by maternal obesity (BMI36.7), Anemia (feS04 supplementation), UTI, Abnormal Pap (ASCUS, + HR HPV with plan for repeat PAP in 12 months), Positive Chlamydia (03/07/18 treated, FALGUNI collected 03/28/18 results not available). O positive, Rubella Immune, VDRL non-reactive, HBsAg Negative, HIV Negative, GC neg, Trich Neg. GBS Negative. Past History Past Surgical History: no surgical history POLITICAL CONSULTANT History: abnormal PAP smear, chlamydia (Treated, FALGUNI 03/28/18: pending). denies: gonorrhea, hepatitis B, hepatitis C, herpes, HIV, syphilis, trichomonas Family/Genetic History: none Social history: no significant social history, single, lives with family, full code. denies: smoking, alcohol abuse, prescription drug abuse, IV drug use - Obstetrical History Expected Date of Delivery: 04/04/18 Actual Gestation: 39 Week(s) 1 Day(s) Hx # Term Pregnancies: 0 Number of Pregnancies: 0 Spontaneous Abortions: 1 Induced : 0 Number of Living Children: 0 Medications and Allergies Active Meds: Active Medications Butorphanol Tartrate (Stadol) 2 mg IV Q2H PRN PRN Reason: Labor Pain Lactated Ringer's (Lactated Ringers) 1,000 mls @ 125 mls/hr IV DIRECT IRAJ Last Admin: 03/29/18 09:17 Dose: 125 mls/hr Documented by: Review of Systems Eyes: normal appearance Cardiovascular: no chest pain, no lightheadedness, no shortness of breath Respiratory: no shortness of breath Breasts: normal Gastrointestinal: no abdominal pain, no nausea, no vomiting, no diarrhea, no constipation Genitourinary: normal appearance, contractions (irregular), no vaginal bleeding, no vaginal discharge, no leakage of fluid Integumentary: no rash, no sores, no lesions - Vital Signs Vital signs: Vital Signs Temp Pulse Resp BP 97.4 F L 93 H 20 124/72 03/28/18 11:52 03/28/18 11:52 03/28/18 11:52 03/28/18 11:52 Temp Pulse Resp BP Pulse Ox 98.1 F 80 20 119/62 98 03/29/18 09:21 03/29/18 10:10 03/29/18 09:21 03/29/18 10:10 03/29/18 09:32 - Physical Exam Breasts: Positive: normal Cardiovascular: Regular rate, Normal S1, Normal S2, No murmurs Lungs: Positive: Clear to auscultation, Normal air movement Abdomen: Positive: normal appearance, soft, normal bowel sounds. Negative: distention Vulva: both: normal Vagina: Positive: normal moisture Uterus: Positive: enlarged (Gravid) Anus/Rectum: Positive: normal perianal skin Extremities: Positive: normal - Obstetrical FHR: auscultation normal, category 1 Uterine Contraction Monitor Mode: External Cervical Dilatation: 1 Cervical Effacement Percentage: 60 station: -2 Uterine Contraction Pattern: Irregular Uterine Tone Measurement Phase: Resting Uterine Contraction Intensity: Mild Results Result Diagrams: 03/28/18 14:52 Abnormal lab results 03/28/18 Range/Units 14:52 MCV 73 L (79-97) fl MCH 23 L (28-32) pg Seg Neutrophils % 72.4 H (40.0-70.0) % All other labs normal. Assessment and Plan A: Term IUP at 39w1d Maternal Obesity Category 1 tracing GBS Negative Hx positive Chlamydia, Tx'd 03/07, FALGUNI 03/28:pending P: Routine labor orders Cooks catheter/low dose pitocin Anticiapte
[2018-03-29] MEDS ORDERED: PITOCin/NS 30 UNIT/500ML 30 UNITS/500 ML BAG IV SCH (12:00)
--- NOTE | 2018-03-29 13:07 | Event Note ---
Date: 03/29/18 (12:00) Cooks catheter inserted with gentle fashion. 80ml sterile NS added to the uterine and vaginal bulb. Pt tolerated well. Orders given to start pitocin. Category 1 tracing. SVE /-2.
[2018-03-29] MEDS ORDERED: ZOFRAN IV PRN ×3 (13:52→23:03)
[2018-03-29] MEDS ORDERED: PEPCID IV SCH (14:00)
[2018-03-29] MEDS: STADOL IV PRN ×2 (14:40→18:34)
--- NOTE | 2018-03-29 20:42 | Event Note ---
Date: 03/29/18 Patient had received Stadol for pain at 18:34. FHR baseline 115 with minimal variability and variable FHR decelerations. No repetitive decelerations. Patient positioned in lateral position, IV fluid bolus given, and oxygen given per face mask. No improvement with interventions. Category 2 heart rate tracing. Not able to resume induction due to heart rate tracing which is unimproved with interventions. Consulted with Dr. Mendez re: heart rate tracing. section called. Discussed with patient and family. Patient and family state they are in agreement with having section.
[2018-03-29] MEDS ORDERED: BICITRA PO ONE (21:06)
[2018-03-29] MEDS ORDERED: PEPCID IV ONE (21:06)
[2018-03-29] MEDS ORDERED: REGLAN IV ONE (21:06)
[2018-03-29] MEDS ORDERED: BICITRA ONE (21:10)
[2018-03-29] MEDS ORDERED: PITOCin/NS 20 UNIT/1000ML DRIP 20,000 MILLIUNITS/1,000 ML BAG IV ONE (21:10)
[2018-03-29] MEDS ORDERED: ANCEF/STERILE WATER 2 GM/20 ML 2 GM/20 ML SYRINGE IV ONE (21:11)
[2018-03-29] MEDS ORDERED: REGLAN ONE (21:11)
[2018-03-29] MEDS ORDERED: SENSORCAINE/DEXTR 0.75-8.25% INFILTRATI ONE (21:45)
[2018-03-29] MEDS ORDERED: ASTRAMORPH PF 10MG/10ML ONE (21:45)
[2018-03-29] MEDS ORDERED: ZOFRAN ONE (21:45)
[2018-03-29] MEDS ORDERED: XYLOCAINE 2%/ EPI 1:200,000 INFILTRATI ONE (21:46)
[2018-03-29] MEDS ORDERED: LIDOCAINE 1.5%/EPI 1:200,000 INFILTRATI ONE (21:47)
[2018-03-29] MEDS ORDERED: LACTATED RINGERS 1,000 ML IV SCH (22:00)
[2018-03-29] MEDS ORDERED: PITOCin/NS 20 UNIT/1000ML DRIP 20 UNITS/1,000 ML BAG IV SCH ×2 (22:00→23:00)
[2018-03-29] MEDS ORDERED: NACL 0.9% IR ONE (22:00)
[2018-03-29] MEDS ORDERED: ANCEF/STERILE WATER 2 GM/20 ML 2 GM/20 ML SYRINGE IV NR (22:00)
[2018-03-29] MEDS ORDERED: WATER FOR IRRIG STERILE IR ONE (22:00)
[2018-03-29] MEDS ORDERED: NEO SYNEPHRINE ONE (22:08)
[2018-03-29] MEDS ORDERED: VERSED ONE ×2 (22:27→22:29)
[2018-03-29] MEDS ORDERED: DIPRIVAN 10 MG/ML IV ONE (22:31)
[2018-03-29] MEDS ORDERED: TORADOL ONE (22:34)
--- NOTE | 2018-03-29 22:49 | Operative Report ---
Operative Report Operative Report: Date of procedure: 03/29/2018 Pre-operative diagnosis: 1. Intrauterine at 39-1/7 weeks 2. Morbid obesity 3. Non-reassuring surveillance Post-operative diagnosis: Same Procedure name(s): Primary low transverse section Surgeon: Rafal Mendez MD Automation Lead: None Anesthesia: Spinal anesthesia by Dr. Avila EBL: 350 mL Findings: A 2854 g female infant Apgars 8 at 1 minute and 9 at 5 minutes. Clear amniotic fluid. Normal uterus. Normal tubes and ovaries bilaterally. Procedure: After the patient was prepped and draped in usual sterile fashion, and after satisfactory level of epidural anesthesia was obtained, the skin knife was used to make a transverse skin incision. The incision was excised down to layer of the fascia, which was nicked in the midline and extended laterally using the Bovie cautery. The rectus muscles were dissected off the rectus fascia both superiorly and inferiorly. The rectus bellies in the midline, and the peritoneum was entered under direct visualization. The peritoneal incision was extended superiorly and inferiorly. A bladder flap was created and the bladder blade was then placed. The uterus was scored in a curvilinear linear fashion, entered in the midline revealing clear amniotic fluid. The infant's head was delivered onto the surgical field, and the oropharynx and nasopharynx were bulb suctioned. The rest of the 's body was delivered, cord was doubly clamped and cut and the infant was handed to the waiting respiratory team. Cord blood was then obtained. The placenta was manually removed from the uterus, and the uterus removed from its normal anatomical position. After gentle uterine lavage, the incision was inspected and found to be without extensions. It was then closed in 2 layers using 0 Vicryl suture in a running interlocking fashion, the second layer imbricating the first. After good hemostasis was achieved, copious amounts or irrigation was performed, and the gutters were suctioned free of blood and blood clots. Tisseel sealant was sprayed across the uterine incision. The uterus was then returned to its normal anatomical position, and after excellent hemostasis assured, the peritoneum was re-approximated using 3-0 Vicryl suture in a running interlocking fashion, and then the rectus muscles were re-approximated using 3-0 Vicryl suture in a [id number] configuration. The fascia was then re- approximated using 0 Vicryl suture in running interlocking fashion. The subcut aneous layer was made hemostatic using Bovie cautery, the Tisseel sealant was sprayed across the fascial incision and the skin edges re-approximated using 4-0 Vicryl suture in a sub-cuticular fashion. Patient tolerated the procedure well was transported to recovery in stable condition.
[2018-03-29] MEDS ORDERED: LANSINOH TP PRN (22:56)
[2018-03-29] MEDS ORDERED: TORADOL IV PRN (22:56)
[2018-03-29] MEDS ORDERED: TUCKS PAD TP PRN (22:56)
[2018-03-29] MEDS ORDERED: SENOKOT PO PRN (22:56)
[2018-03-29] MEDS ORDERED: NARCAN 0.4 MG/1 ML IV PRN ×2 (22:56→23:03)
[2018-03-29] MEDS ORDERED: PHENERGAN PR PRN ×2 (22:56→23:03)
[2018-03-29] MEDS ORDERED: MILK OF MAGNESIA PO PRN (22:56)
[2018-03-29] MEDS ORDERED: TYLENOL PO PRN (22:56)
[2018-03-29] MEDS ORDERED: MYLICON PO PRN (22:56)
[2018-03-29] MEDS ORDERED: SODIUM CHLORIDE FLUSH SYRINGE 10 ML IV NR ×2 (23:00→23:45)
[2018-03-29] MEDS ORDERED: DILAUDID IV PRN (23:03)
[2018-03-29] MEDS ORDERED: PHENERGAN PO PRN (23:03)
--- NOTE | 2018-03-29 23:05 | Anesthesia Day of Surgery ---
Anesthesia Day of Surgery - Day of Surgery Patient Examined: Yes Patient H&P Reviewed: Yes Patient is NPO: Yes Beta Blockers: No Cardiac Clearance: No Pulmonary Clearance: No Jaime's Test: N/A
--- NOTE | 2018-03-29 23:05 | Anesthesia Consultation ---
Anesthesia Consult and Med Hx - Airway Anesthetic Teeth Evaluation: Good ROM Head & Neck: Adequate Mental/Hyoid Distance: Adequate Mallampati Class: Class I Intubation Access Assessment: Good - Pulmonary Exam CTA: Yes - Cardiac Exam Cardiac Exam: RRR - Pre-Operative Health Status ASA Pre-Surgery Classification: ASA2 Proposed Anesthetic Plan: Spinal - Pulmonary Hx Smoking: No Hx Asthma: No - Cardiovascular System Hx Hypertension: No - Central Nervous System Hx Seizures: No Hx Psychiatric Problems: No - Endocrine Hx Renal Disease: No Hx Hypothyroidism: No Hx Hyperthyroidism: No - Hematic Hx Anemia: No Hx Sickle Cell Disease: No - Other Systems Hx Alcohol Use: No
--- NOTE | 2018-03-29 23:06 | Post Anesthesia Evaluation ---
- Post Anesthesia Evaluation Patient Participated: Yes Airway Patent: Yes Stable Respiratory Function: Yes Nausea/Vomiting: No Temp > 96.8F: Yes Pain Manageable: Yes Adequeate Hydration: Yes Anesthesia Complications: No Block Receding Appropriately: Yes Patient on Ventilator: No
[2018-03-30] MEDS: D5LR 1,000 ML IV SCH ×2 (03:45→12:17)
[2018-03-30] MEDS: ANCEF/NS 1 GM/50 ML 1 GM/50 ML BAG IV SCH ×2 (05:32→12:10)
[2018-03-30] MEDS ORDERED: BOOSTRIX IM ONE (06:00)
[2018-03-30] MEDS ORDERED: M-M-R II VACCINE SUB-Q ONE (10:00)
--- NOTE | 2018-03-30 10:59 | Progress Note ---
Assessment and Plan A: /postop day 1 S/P primary low transverse section. Headache. P: Patient to take pain medication. If headache persists, she is to be evaluated by anesthesia. Encouraged ambulation today. Advance diet when passing gas. Subjective - Subjective Date of service: 03/30/18 Principal diagnosis: /postop day 1 S/P primary LTCS Interval history: /postop day 1 S/P primary low transverse section. Doing well. Still has Champion catheter in place, draining clear yellow urine. Patient has not been out of bed to ambulate yet. She is not passing gas yet. Patient reports mild headache; plans to request pain pill from nurse. She denies chest pain, shortness of breath, dizziness, visual disturbance, abdominal pain, leg pain, or heavy vaginal bleeding. Patient reports: appetite normal, no flatus, no nauseated [place]: doing well Objective - Vital Signs Latest vital signs: Vital Signs Temp Pulse Resp BP BP Pulse Ox 03/30/18 08:15 97.6 F 84 18 115/67 03/30/18 06:11 97.7 F 76 20 95/42 98 03/30/18 03:45 18 03/30/18 01:27 18 03/30/18 00:39 97.6 F 83 18 112/67 100 03/30/18 00:06 98.0 F 66 21 109/59 97 03/29/18 23:55 64 21 117/58 97 03/29/18 23:40 68 21 109/59 100 03/29/18 23:25 68 23 120/60 100 03/29/18 23:10 73 22 120/58 100 03/29/18 23:05 73 25 H 122/59 100 03/29/18 23:03 98.3 F 79 26 H 116/60 100 03/29/18 21:08 84 98 03/29/18 21:03 91 H 91 03/29/18 20:58 104 H 100 03/29/18 20:56 93 H 110/81 03/29/18 20:53 85 100 03/29/18 20:48 85 100 03/29/18 20:44 84 93 03/29/18 20:43 83 97 03/29/18 20:38 69 100 03/29/18 20:33 70 100 03/29/18 20:28 64 100 03/29/18 20:24 67 111/56 03/29/18 20:23 65 100 03/29/18 20:18 64 100 03/29/18 20:13 63 100 03/29/18 20:08 64 100 03/29/18 20:03 65 100 03/29/18 19:58 64 100 03/29/18 19:54 59 L 108/51 03/29/18 19:53 64 100 03/29/18 19:48 61 99 03/29/18 19:43 62 100 03/29/18 19:38 68 100 03/29/18 19:33 80 97 03/29/18 19:28 62 100 03/29/18 19:24 60 138/62 91 03/29/18 19:22 60 100 03/29/18 19:17 64 99 03/29/18 19:12 64 100 03/29/18 19:04 20 03/29/18 18:54 75 109/60 03/29/18 18:34 20 03/29/18 18:24 81 121/57 03/29/18 17:54 76 113/51 03/29/18 17:25 98.2 F 74 20 112/65 03/29/18 16:54 75 114/59 03/29/18 16:24 74 108/59 03/29/18 15:56 63 103/58 03/29/18 15:24 68 106/56 03/29/18 14:54 87 117/68 03/29/18 14:40 18 03/29/18 14:26 82 108/59 03/29/18 13:51 78 111/53 03/29/18 13:50 98.3 F 18 Intake and Output 03/29/18 03/30/18 03/30/18 23:59 07:59 15:59 Intake Total 3222.133 120 120 Output Total 1400 400 600 Balance 1822.133 -280 -480 Intake: IV 3122.133 Lactated Ringers 1,000 ml 1000 @ 125 mls/hr IV DIRECT IRAJ Rx#:[id number] PITOCin/NS 30 UNIT/500ML 22.133 30 units In 500 ml @ 2 mls/hr IV TITR IRAJ Rx#: [id number] Oral 100 120 120 Output: Urine 1400 400 600 Uretheral (Champion) 300 Void 800 400 600 Other: Total, Intake Amount 100 120 120 Total, Output Amount 800 400 600 Estimated Blood Loss 350 - Exam Cardiovascular: Present: Regular rate, Normal S1, Normal S2 Lungs: Present: Clear to auscultation Abdomen: Present: normal appearance, soft, normal bowel sounds. Absent: distention, tenderness, guarding, rigidity Uterus: Present: normal, firm, fundal height below umbilicus. Absent: bogginess, tenderness Extremities: Present: normal, edema (mild bilateral pedal edema). Absent: tenderness Incision: Present: normal, dry, intact, dressed
[2018-03-30 11:20] LABS: Hematocrit 28.4 % (30.3-42.9); Hemoglobin 8.9 gm/dl (10.1-14.3)
[2018-03-30] MEDS ORDERED: BENADRYL PO PRN (12:04)
[2018-03-30] MEDS: PERCOCET 5/325 PO PRN ×2 (12:10→19:23)
[2018-03-30] MEDS: FEOSOL PO SCH (12:25)
[2018-03-30] MEDS: PRENATAL VITAMIN PO SCH (12:25)
[2018-03-30] MEDS: NORCO 5/325 PO PRN ×2 (13:16→20:44)
[2018-03-31] MEDS: PERCOCET 5/325 PO PRN (02:10)
[2018-03-31] MEDS: IBUPROFEN PO PRN ×3 (02:11→22:29)
[2018-03-31] MEDS: NORCO 5/325 PO PRN (06:12)
[2018-03-31] MEDS: FEOSOL PO SCH (09:17)
[2018-03-31] MEDS: PRENATAL VITAMIN PO SCH (09:18)
--- NOTE | 2018-03-31 11:10 | Progress Note ---
Subjective Date of service: 03/31/18 Principal diagnosis: /postop day 1 S/P primary LTCS Interval history: CTSP for HARTMAN x two days. Pt states she has been receiving numerous medications a nd nothing is working. She denies any postural change and was sitting up when I went to see her. She does report nuchal and shoulder rigidity and has not been febrile. She denies diplopia or any other vision changes. She is and I will avoid ASA products. She has not been drinking or receiving any caffeine. Will start her on fioricet and follow up tomorrow. Will consider neuro consult if nuchal rigidity worsens, or more neuro symptoms. Objective - Constitutional Vitals: Vital Signs - 12hr 03/31/18 03/31/18 00:00 08:05 Temperature 98.7 F 98.7 F Pulse Rate 71 68 Respiratory 16 20 Rate Blood Pressure 112/72 107/63 [Left] - Labs CBC & Chem 7: 03/30/18 10:54 Labs: Abnormal lab results 03/30/18 Range/Units 10:54 Hgb 8.9 L (10.1-14.3) gm/dl Hct 28.4 L (30.3-42.9) %
--- NOTE | 2018-03-31 11:28 | Progress Note ---
Assessment and Plan A: /postop day 2 S/P primary low transverse section. Anemia secondary to and blood loss. Headache, has been evaluated by anesthesia and started on Fioricet. P: Continue current management. Continue iron supplementation. Subjective - Subjective Date of service: 03/31/18 Principal diagnosis: /postop day 2 S/P primary LTCS Interval history: /postop day 2 S/P primary low transverse section. Doing well. Reports she still has a headache and has been evaluated by anesthesia today. Anesthesia note states patient will be started on Fioricet. Patient is voiding without difficulty and ambulating well. She is passing gas. She is tolerating a regular diet without nausea or vomiting. Patient denies visual disturbance, shortness of breath, cough, chest pain, abdominal pain, or leg pain. Patient reports: appetite normal, voiding normally, pain well controlled, flatus, ambulating normally, no dizzy ambulation, no nauseated [place]: doing well Objective - Vital Signs Latest vital signs: Vital Signs Temp Pulse Resp BP 03/31/18 08:05 98.7 F 68 20 107/63 03/31/18 00:00 98.7 F 71 16 112/72 03/30/18 16:10 98.9 F 77 20 104/64 03/30/18 13:55 97.3 F L 84 20 123/71 Intake and Output 03/30/18 03/31/18 03/31/18 23:59 07:59 15:59 Intake Total 320 300 360 Balance 320 300 360 Intake: Oral 320 360 Intake, Free Water 300 Other: Total, Intake Amount 320 360 # Voids Void 1 - Exam Cardiovascular: Present: Regular rate, Normal S1, Normal S2 Lungs: Present: Clear to auscultation Abdomen: Present: normal appearance, soft, normal bowel sounds. Absent: distention, tenderness, guarding, rigidity Uterus: Present: normal, firm, fundal height below umbilicus. Absent: bogginess, tenderness Extremities: Present: normal. Absent: tenderness, edema Incision: Present: normal, dry, intact, dressed
[2018-03-31] MEDS: FIORICET PO PRN ×3 (13:11→22:29)
[2018-04-01] MEDS: PERCOCET 5/325 PO PRN (02:09)
[2018-04-01] MEDS: FIORICET PO PRN (03:07)
[2018-04-01] MEDS: NORCO 5/325 PO PRN (03:07)
--- NOTE | 2018-04-01 08:26 | Progress Note ---
Subjective Date of service: 04/01/18 Principal diagnosis: /postop day 2 S/P primary LTCS Interval history: Called to 2140 to follow up on a headache. Examined pt, explored all options and decided with pts consent to do a epidural blood patch. See OR record for procedure notes. Tolerated well, sterile technique maintained, inclusinf for blood draw. Pt to remain supine for 20 min. sTATES INSTANT RELIEF. Objective - Constitutional Vitals: Vital Signs - 12hr 03/31/18 03/31/18 04/01/18 22:29 23:29 01:05 Temperature 98 F Pulse Rate 68 Respiratory 18 18 18 Rate Blood Pressure 118/77 [Left] 04/01/18 04/01/18 04/01/18 02:09 03:07 03:09 Temperature Pulse Rate Respiratory 18 18 18 Rate Blood Pressure [Left] 04/01/18 04:07 Temperature Pulse Rate Respiratory 18 Rate Blood Pressure [Left] - Labs CBC & Chem 7: 03/30/18 10:54 Medications & Allergies - Medications Allergies/Adverse Reactions: Allergies peanut Allergy (Verified 03/01/18 08:39) Itching shellfish derived Allergy (Verified 03/01/18 08:39) Hives Home Medications: Home Medications Medication Instructions Recorded Confirmed Last Taken Type Cetirizine HCl [ZyrTEC] 10 mg PO QDAY PRN 06/16/16 03/31/18 5 Days Ago History ~12/04/17 Vit Calc,Iron,Folic 1 each PO QDAY #30 tablet 06/16/16 03/31/18 12/08/17 23:30 Rx [ Vitamins] Promethazine [Phenergan TAB] 25 mg PO Q6HR PRN #30 tab 08/21/17 03/31/18 12/08/17 23:00 Rx Ferrous Sulfate [Iron] 325 mg PO QDAY 12/09/17 03/31/18 12/08/17 10:30 History Ferrous Sulfate [Feosol 325 MG tab] 325 mg PO BID #60 tablet 03/29/18 Unknown Rx HYDROcodone/APAP 5-325 [[place] 1 each PO Q6HR PRN #30 tablet 03/29/18 Unknown Rx 5/325] Ibuprofen [Motrin] 800 mg PO Q8HR PRN #30 tablet 03/29/18 Unknown Rx Pnv No.95/Ferrous Fum/Folic AC 1 each PO DAILY #30 tablet 03/29/18 Unknown Rx [Prenavite Tablet] Active Medications: Generic Name Dose Route Start Last Admin Trade Name Freq PRN Reason Stop Dose Admin Acetaminophen 650 mg 03/29/18 22:56 Tylenol PO Q4H PRN Fever >100.5/HARTMAN Acetaminophen/Butalbital/Caffeine 1 tab 03/31/18 12:22 04/01/18 03:07 Fioricet PO 1 tab Q4H PRN Administration Headache Acetaminophen/Hydrocodone Bitart 1 each 03/29/18 22:56 04/01/18 03:07 [place] 5/325 PO 1 each Q4H PRN Administration Pain, Moderate (4-6) Diphenhydramine HCl 25 mg 03/30/18 12:04 03/30/18 12:15 Benadryl PO 25 mg Q6H PRN Administration Itching Ferrous Sulfate 325 mg 03/30/18 10:00 03/31/18 09:17 Feosol PO 325 mg QDAY IRAJ Administration Dextrose/Lactated Ringer's 1,000 mls @ 125 mls/hr 03/29/18 23:00 03/30/18 12:17 D5lr IV 125 mls/hr DIRECT IRAJ Administration Oxytocin/Sodium Chloride 20 units in 1,000 mls @ 250 mls/hr 03/29/18 23:00 Pitocin/Ns 20 Unit/1000ml Drip IV DIRECT IRAJ Ibuprofen 800 mg 03/31/18 01:00 03/31/18 22:29 Motrin PO 800 mg Q6H PRN Administration Pain, Mild (1-3) Ketorolac Tromethamine 30 mg 03/29/18 22:56 03/30/18 03:45 Toradol IV 04/03/18 22:55 30 mg Q6H PRN Administration Pain, Moderate (4-6) Magnesium Hydroxide 30 ml 03/29/18 22:56 Milk Of Magnesia PO QHS PRN Constip Unrelieved By Senna Multi-Ingredient Ointment 1 applic 03/29/18 22:56 03/31/18 20:08 Lansinoh TP 1 applic PRN PRN Administration dryness/cracking Multivitamins/Iron/Calcium 1 each 03/30/18 10:00 03/31/18 09:18 Vitamin PO 1 each QDAY IRAJ Administration Naloxone HCl 0.1 mg 03/29/18 22:56 Narcan 0.4 Mg/1 Ml IV Q2MIN PRN Res Rate </= 8 or 02 SAT < 92% Naloxone HCl 0.2 mg 03/29/18 23:03 Narcan 0.4 Mg/1 Ml IV Q2MIN PRN Res Rate </= 8 or 02 SAT < 92% Ondansetron HCl 4 mg 03/29/18 22:56 Zofran IV Q8H PRN Nausea And Vomiting Ondansetron HCl 4 mg 03/29/18 23:03 Zofran IV Q8H PRN Nausea And Vomiting Oxycodone/Acetaminophen 2 tab 03/29/18 22:56 04/01/18 02:09 Percocet 5/325 PO 2 tab Q6H PRN Administration Pain, Moderate (4-6) Promethazine HCl 25 mg 03/29/18 22:56 Phenergan MO Q6H PRN N/V IF NPO AND NO IV ACCESS Promethazine HCl 25 mg 03/29/18 23:03 Phenergan PO Q6H PRN Nausea And Vomiting Senna 17.2 mg 03/29/18 22:56 Senokot PO QHS PRN Constipation Simethicone 80 mg 03/29/18 22:56 04/01/18 03:07 Mylicon PO 80 mg Q6H PRN Administration Gas pain Sodium Chloride 10 ml 03/29/18 23:00 Sodium Chloride Flush Syringe 10 Ml IV 04/09/18 23:59 PRN NR Sodium Chloride 10 ml 03/29/18 23:45 Sodium Chloride Flush Syringe 10 Ml IV 04/09/18 23:59 PRN NR Witch Anjali/Glycerin 1 each 03/29/18 22:56 Tucks Pad TP PRN PRN Hemorrhoids/cleansing/soothing
--- NOTE | 2018-04-01 11:03 | Progress Note ---
Assessment and Plan A: POD #3 Asymptomatic Anemia HARTMAN P: Follow Routine Postop Orders Anesthesia Consult Continue FeSO4 D/C Home per patient request today RTO in One Week Subjective - Subjective Date of service: 04/01/18 Principal diagnosis: /postop day 2 S/P primary LTCS Patient reports: appetite normal, voiding normally, pain well controlled, flatus, ambulating normally, other (states her HARTMAN is resolved and she is ready to go home ) [place]: doing well, bottle feeding Objective - Vital Signs Latest vital signs: Vital Signs Temp Pulse Resp BP BP Pulse Ox 04/01/18 07:38 98.0 F 71 20 128/71 100 04/01/18 04:07 18 04/01/18 03:09 18 04/01/18 03:07 18 04/01/18 02:09 18 04/01/18 01:05 98 F 68 18 118/77 03/31/18 23:29 18 03/31/18 22:29 18 03/31/18 17:03 97.9 F 78 20 118/70 Intake and Output 03/31/18 04/01/18 04/01/18 22:59 06:59 14:59 Intake Total 360 660 Balance 360 660 Intake: Oral 240 Intake, Free Water 120 660 Other: Total, Intake Amount 120 # Voids Void 1 1 - Exam Breasts: Present: normal Cardiovascular: Present: Regular rate Lungs: Present: Clear to auscultation, Normal air movement Abdomen: Present: normal appearance, soft, normal bowel sounds Uterus: Present: normal, firm, fundal height below umbilicus Extremities: Present: normal Incision: Present: normal, dry, intact
--- NOTE | 2018-04-01 11:05 | Discharge Summary ---
Providers - Providers Date of Admission: 03/28/18 11:37 Date of discharge: 04/01/18 Attending physician: AINSLEY KAT MD Primary care physician: AINSLEY KAT MD Hospitalization Reason for admission: induction of labor Delivery: Procedure: primary low transverse Episiotomy: none Laceration: none Incision: normal, dry, intact Other procedures: none complications: none Discharge diagnosis: IUP at term delivered [place] baby: female Condition at discharge: Good Disposition: DC-01 TO HOME OR SELFCARE Plan - Discharge Medications Prescriptions: Ferrous Sulfate [Feosol 325 MG tab] 325 mg PO BID #60 tablet HYDROcodone/APAP 5-325 [[place] 5/325] 1 each PO Q6HR PRN #30 tablet PRN Reason: Pain Ibuprofen [Motrin] 800 mg PO Q8HR PRN #30 tablet PRN Reason: Pain, Moderate (4-6) Pnv No.95/Ferrous Fum/Folic AC [Prenavite Tablet] 1 each PO DAILY #30 tablet - Provider Discharge Summary Activity: routine, no sex for 6 weeks, no heavy lifting 4 weeks, no strenuous exercise Diet: routine Instructions: routine Additional instructions: [] Smoking cessation referral if applicable(refer to patient education folder for contact #) [] Refer to [facility]'s [facility] Booklet Call your doctor immediately for: * Fever > 100.5 * Heavy vaginal bleeding ( >1 pad per hour) * Severe persistent headache * Shortness of breath * Reddened, hot, painful area to leg or breast * Drainage or odor from incision. * Keep incision clean and dry at all times and follow doctor's instructions regarding bathing/showering - Follow up plan Follow up: AINSLEY KAT MD [Primary Care Provider] - 7 Days
[2018-04-01 12:31] VITALS: BP 115/66
== END 2018-04-01 12:45 | disposition home or self-care (01) | DRG 765 ==
LOC: TRG 11:36 → LD 11:37 → TRG 14:57 → OB 03-30 00:23
PROVIDERS: ADMIT Obstetrics & Gynecology; ATTEND Obstetrics & Gynecology
PROC: 10D00Z1 Extraction of Products of Conception, Low, Open Approach (ICD-10-PCS; principal; 2018-03-29)
PROC: 3E0234Z Introduction of Serum, Toxoid and Vaccine into Muscle, Percutaneous Approach (ICD-10-PCS; 2018-03-30)
DX: O76 Abnormality in fetal heart rate and rhythm complicating labor and delivery (principal); O99.354 Diseases of the nervous system complicating childbirth; O99.214 Obesity complicating childbirth; O99.02 Anemia complicating childbirth; R51 Headache; E66.01 Morbid (severe) obesity due to excess calories; D64.9 Anemia, unspecified; Z71.3 Dietary counseling and surveillance; Z3A.39 39 weeks gestation of pregnancy; Z37.0 Single live birth; Z91.010 Allergy to peanuts; Z91.013 Allergy to seafood; Z79.899 Other long term (current) drug therapy; Z23 Encounter for immunization
CPT/HCPCS: 36415; 59025; 76815; 76819; 85014; 85018; 85025; 86592; 86850; 86900; 86901; G0378; A6250; J0595; J0690; J1170; J1885; J2250; J2274; J2370; J2405; J2590; J2704; J2765; J7120; J7121